=== PATIENT | male | born 1940 | race Caucasian/White ===

== ENCOUNTER 2016-09-12 12:01 | Emergency (ER) | payer MEDICARE ==
[~2016-09-12] VITALS: Ht 170.2 cm; Wt 99.8 kg
[~2016-09-12 12:01] MED LIST: ASPI325T11 PO; ATORVASTATIN CA80 MG PO; CARV6.252 PO; GLIP5TAB10 PO; HYDR-963 PO; INSU100V8 SQ; LOSA100T6 PO; METF10002 PO; NIAC750T4 PO
--- NOTE | 2016-09-12 12:16 | EKG ---
[address] [address] Test Date: 2016-09-12 Test Time: 12:03:15 Pat Name: MERRICK TAO Department: Room: Gender: M [employer]: : 1940 Requested By: VALENTIN ORELLANA Order Number: [id number] Reading MD: Measurements Intervals [place] Rate: 104 P: -47 GA: 174 QRS: 41 QRSD: 94 T: -36 QT: 326 QTc: 429 Interpretive Statements SINUS TACHYCARDIA VENTRICULAR PREMATURE COMPLEX(ES) QRS(T) CONTOUR ABNORMALITY CONSIDER ANTEROSEPTAL MYOCARDIAL DAMAGE RI6.01 Unconfirmed report No previous ECG available for comparison
[2016-09-12 12:20] LABS: BASO # 0.1 x10^3/uL (0.0-0.2); BASO % 0 % (0-3); EOS % 0 % (0-3); HEMATOCRIT 35.5 % (39.0-53.0); HEMOGLOBIN 12.5 g/dL (13.0-17.5); LYMPH % 7 % (24-48); MEAN CORPUSCULAR HEMOGLOBIN 34 pg (25-35); MEAN CORPUSCULAR HGB CONC 35 g/dL (31-37); MEAN CORPUSCULAR VOLUME 96 fL (79-100); MONO # 1.1 x10^3/uL (0.0-1.1); MONO % 8 % (0-9); NEUT % 85 % (31-73); PLATELET COUNT 262 x10^3/uL (140-400); RED CELL DISTRIBUTION WIDTH 13.1 % (11.5-14.5); WHITE BLOOD COUNT 14.2 x10^3/uL (4.0-11.0)
--- NOTE | 2016-09-12 12:26 | RAD ---
Indication weakness and cough. A single view of the chest was obtained. Comparison is made to an examination 07/06/2015. Postoperative changes are noted. Pulmonary vasculature is normal and the heart size is normal. There is no acute parenchymal infiltrate. Significant pleural fluid is not present. There is no pneumothorax. IMPRESSION: No acute process seen in the chest
--- NOTE | 2016-09-12 12:27 | RAD ---
CT scan of the head without contrast 09/12/2016 Clinical History: Focal weakness since 5:00 AM.. Code stroke. Technique: Unenhanced, contiguous, 5 mm axial sections were obtained through the head. One or more of the following individualized dose reduction techniques were utilized for this study: 1. Automated exposure control. 2. Adjustment of the mA and/or kV according to patient size. 3. Use of iterative reconstruction technique. Findings: Comparison study is dated 07/06/2015. There is generalized parenchymal atrophy. Small scattered areas of decreased attenuation are seen within the periventricular and subcortical white matter of both cerebral hemispheres consistent with areas of mild small vessel ischemic disease. No acute parenchymal abnormality is seen. No extra-axial fluid collection is noted. Impression: No acute intracranial abnormality is seen. This result was called to Dr. Willson in the emergency department at 1221 hours.
[2016-09-12 12:40] LABS: ALBUMIN 3.5 g/dL (3.4-5.0); CREATININE 1.2 mg/dL (0.7-1.3); DIRECT BILIRUBIN 0.2 mg/dL (0.0-0.2); GFR 59.2; POTASSIUM 4.4 mmol/L (3.5-5.1); TOTAL BILIRUBIN 0.8 mg/dL (0.2-1.0); TOTAL PROTEIN 6.6 g/dL (6.4-8.2)
[2016-09-12] MEDS ORDERED: IPRATRPIUM/ALBUTEROL 0.5/2.5MG 3 ML NEBU. ONE (12:41)
[2016-09-12 13:24] LABS: AMORPHOUS SEDIMENT,UR PRESENT /HPF; BACTERIA,URINE FEW /HPF (0-FEW); BILIRUBIN,URINE NEG (NEG); CLARITY,URINE CLOUDY; COLOR,URINE AMBER; GLUCOSE,URINE 250 mg/dL (NEG); NITRITE,URINE NEG (NEG); SQUAMOUS EPITHELIAL CELL,UR OCC /LPF; UROBILINOGEN,URINE 0.2 mg/dL (0.2 mg/dL); WBC,URINE OCC /HPF (0-4)
--- NOTE | 2016-09-12 13:28 | PHYS DOC ---
Past History Past Medical History: CAD, Diabetes, High Cholesterol, Hypertension Past Surgical History: Appendectomy, Coronary Bypass Surgery Smoking: Cigarettes Alcohol Use: None Drug Use: None Adult General Chief Complaint Chief Complaint: NEURO SYMPTOMS/DEFICITS HPI HPI 76-year-old male presenting to the emergency department today with right-sided weakness and facial droop with slurring of his speech that started sometime after 5 PM yesterday. His family is here with him today his son-in-law and grandson initially. Later his daughter joined. Last known normal 5 PM yesterday. Family reports he was with them at dinner at 5 PM when he went home. He does live at home alone. Today around 10:00am the family went to go fix something in his house and noticed that he was ataxic and slurring his speech. He brought him in as soon as they could for evaluation. They report he was feeling well the last few days and reports this to be a sudden change. Review of systems is negative for chest pain abdominal pain nausea vomiting fevers or chills. All other review of systems is negative unless otherwise noted in history of present illness. ED course: 76-year-old gentleman presenting to the emergency department today with acute focal weakness suggestive of a stroke. Blood glucose within normal limits. Head CT unremarkable. EKG shows mild tachycardia with a sinus rhythm. ST segments congruent. 3 PVCs noted on EKG. Not suggestive of ACS. Reviewed by myself.Chest x-ray reviewed by myself shows no obvious infiltrate or pneumothorax present. No obvious acute cardiopulmonary process present. Labs obtained which showed hyperglycemia mild. Otherwise lactic acidosis present. I do not suspect infection at this time currently. The patient was then transferred to [facility] for acute stroke management. Review of Systems Review of Systems SEE ABOVE. Current Medications Current Medications Current Medications Medications (Trade) Dose Ordered Sig/[place] Start Time Stop Time Status Last Admin Dose Admin Albuterol/ Ipratropium (Duoneb) 3 ml STK-MED ONCE 09/12/16 12:41 09/12/16 12:42 DC Aspirin (Children'S Aspirin) 324 mg 1X ONCE 09/12/16 13:30 09/12/16 13:31 09/12/16 13:06 324 MG Allergies Allergies Allergies Coded Allergies Type Severity Reaction Last Updated Verified No Known Drug Allergies 06/01/13 No Physical Exam Physical Exam Constitutional: Well developed, well nourished, no acute distress, non-toxic appearance. [] HENT: Normocephalic, atraumatic, bilateral external ears normal, oropharynx moist, no oral exudates, nose normal. [] Eyes: PERRLA, EOMI, conjunctiva normal, no discharge. [] Neck: Normal range of motion, no tenderness, supple, no stridor. [] Cardiovascular:Heart rate regular rhythm, no murmur [] Lungs & Thorax: Bilateral breath sounds clear to auscultation [] Abdomen: Bowel sounds normal, soft, no tenderness, no masses, no pulsatile masses. [] Skin: Warm, dry, no erythema, no rash. [] Back: No tenderness, no CVA tenderness. [] Extremities: No tenderness, no cyanosis, no clubbing, ROM intact, no edema. [] Neurologic: Alert and oriented X 3, normal motor function, normal sensory function, no focal deficits noted. [] Psychologic: Affect normal, judgement normal, mood normal. [] Current Patient Data Vital Signs Vital Signs Date Time Temp Pulse Resp B/P (MAP) Pulse Ox O2 Delivery O2 Flow Rate FiO2 09/12/16 13:01 98 21 127/75 (92) 97 Room Air 09/12/16 12:01 97.0 Lab Results Laboratory Tests Test 09/12/16 12:04 White Blood Count 14.2 x10^3/uL (4.0-11.0) H Red Blood Count 3.70 x10^6/uL (4.30-5.70) L Hemoglobin 12.5 g/dL (13.0-17.5) L Hematocrit 35.5 % (39.0-53.0) L Mean Corpuscular Volume 96 fL (79-100) Mean Corpuscular Hemoglobin 34 pg (25-35) Mean Corpuscular Hemoglobin Concent 35 g/dL (31-37) Red Cell Distribution Width 13.1 % (11.5-14.5) Platelet Count 262 x10^3/uL (140-400) Neutrophils (%) (Auto) 85 % (31-73) H Lymphocytes (%) (Auto) 7 % (24-48) L Monocytes (%) (Auto) 8 % (0-9) Eosinophils (%) (Auto) 0 % (0-3) Basophils (%) (Auto) 0 % (0-3) Neutrophils # (Auto) 12.0 x10^3uL (1.8-7.7) H Lymphocytes # (Auto) 1.0 x10^3/uL (1.0-4.8) Monocytes # (Auto) 1.1 x10^3/uL (0.0-1.1) Eosinophils # (Auto) 0.0 x10^3/uL (0.0-0.7) Basophils # (Auto) 0.1 x10^3/uL (0.0-0.2) Sodium Level 132 mmol/L (136-145) L Potassium Level 4.4 mmol/L (3.5-5.1) Chloride Level 98 mmol/L (98-107) Carbon Dioxide Level 24 mmol/L (21-32) Anion Gap 10 (6-14) Blood Urea Nitrogen 17 mg/dL (8-26) Creatinine 1.2 mg/dL (0.7-1.3) Estimated GFR (Cockcroft-Gault) 59.2 Glucose Level 246 mg/dL (70-99) H Lactic Acid Level 2.4 mmol/L (0.4-2.0) H Calcium Level 9.0 mg/dL (8.5-10.1) Total Bilirubin 0.8 mg/dL (0.2-1.0) Direct Bilirubin 0.2 mg/dL (0.0-0.2) Aspartate Amino Transferase (AST) 26 U/L (15-37) Alanine Aminotransferase (ALT) 162 U/L (16-63) H Alkaline Phosphatase 135 U/L (46-116) H Creatine Kinase 216 U/L (39-308) Troponin I Quantitative < 0.017 ng/mL (0-0.055) NX-Sxx-N-Type Natriuretic Peptide 495 pg/mL (0-124) H Total Protein 6.6 g/dL (6.4-8.2) Albumin 3.5 g/dL (3.4-5.0) Lipase 103 U/L (73-393) EKG EKG [] Radiology/Procedures Radiology/Procedures [] Course & Med Decision Making Course & Med Decision Making Pertinent Labs and Imaging studies reviewed. (See chart for details) [] Dragon Disclaimer Dragon Disclaimer This chart was dictated in whole or in part using Voice Recognition software in a busy, high-work load, and often noisy Emergency Department environment. It may contain unintended and wholly unrecognized errors or omissions. Departure Departure: Impression: Primary Impression: Acute ischemic stroke Additional Impression: Acute ischemic left MCA stroke Disposition: ADMITTED INPATIENT Admitting Physician: Other (accepting Dr. Cuenca) Condition: STABLE Referrals: PCP,NO (PCP) Problem Qualifiers VALENTIN ORELLANA MD Sep 12, 2016 13:28
[2016-09-12] MEDS ORDERED: ASPIRIN 81 MG TAB.CHEW PO ONE (13:30)
[2016-09-12 13:32] VITALS: BP 127/75
== END 2016-09-12 13:43 | disposition other institution (70) ==
LOC: ER 12:01
DX: I63.512 Cerebral infarction due to unspecified occlusion or stenosis of left middle cerebral artery (principal); E78.00 Pure hypercholesterolemia, unspecified; I25.810 Atherosclerosis of coronary artery bypass graft(s) without angina pectoris; E11.9 Type 2 diabetes mellitus without complications; F17.210 Nicotine dependence, cigarettes, uncomplicated
CPT/HCPCS: 36415; 70450; 71010; 80048; 80076; 81001; 82550; 82947; 83605; 83690; 83880; 84484; 85027; 85610; 85730; 93005; 94640; 99285-25

== ENCOUNTER → 2016-11-29 | Outpatient (CLI) | payer MEDICARE ==
--- NOTE | 2016-11-29 11:38 | RAD ---
Ankle-brachial indices, 11/29/2016: History: Diabetes with circulatory, indications Resting NIECY measurements were obtained. The right NIECY is 1.0 while the left NIECY is 0.9. These values are considered to be in the normal range.
== END | disposition home or self-care (01) ==
LOC: US 10:46
PROVIDERS: ATTEND Specialist
DX: E11.59 Type 2 diabetes mellitus with other circulatory complications (principal); E11.69 Type 2 diabetes mellitus with other specified complication
CPT/HCPCS: 93922